=== PATIENT | female | born 1995 | race Caucasian/White ===

== ENCOUNTER 2023-02-22 15:49 | Emergency (ER) | payer MEDICAID ==
[2023-02-22 16:16] VITALS: O2SAT 99
--- NOTE | 2023-02-22 16:32 | ERPHSYRPT ---
- History of Present Illness Time Seen by Provider: 02/22/23 16:28 Source: patient Exam Limitations: no limitations Patient Subjective Stated Complaint: C/O cough for a few days. Denies fever. Triage Nursing Assessment: Patient ambulated back to ER without difficulties. No SOB. She is alert and oriented. A dry, non-productive cough is present. Lungs clear. Physician History: Patient is a 27-year-old female presents to our ED for a 3-day history of a nonproductive cough and a sore throat. No fever. No chest pain. No shortness of breath. No nausea vomiting or diaphoresis. Patient states that she recently had a positive home test. Patient has no pelvic or abdominal pain. No vaginal discharge. Patient is from [place] and does not have a primary care doctor. Patient states there are sick contacts at home. Patient otherwise feels well. She voices no other complaints or concerns at this time. Portions of this note were created with voice recognition technology. There may be grammatical, spelling, punctuation or sound alike errors Timing/Duration: day(s) (3 days) Severity: mild Modifying Factors: Improves With: nothing Associated Symptoms: denies symptoms Allergies/Adverse Reactions: Penicillins Allergy (Verified 02/22/23 16:00) Hx Tetanus, Diphtheria Vaccination/Date Given: Yes Hx Influenza Vaccination/Date Given: No Hx Pneumococcal Vaccination/Date Given: No Immunizations Up to Date: Yes Travel Risk - International Travel Have you traveled outside of the country in past 3 weeks: No - Coronavirus Screening Are you exhibiting any of the following symptoms?: Yes Symptoms: Cough: New Onset Close contact with a COVID-19 positive Pt in past 14-21 Days: No - Vaccine Status Have you recieved a Covid-19 vaccination: Yes Insurance Consultant: Unknown - Vaccination Dates Dates if Unknown: ? - Review of Systems Constitutional: No Symptoms, No Fever, No Chills Eyes: No Symptoms Ears, Nose, & Throat: No Symptoms Respiratory: No Symptoms, No Cough, No Dyspnea Cardiac: No Symptoms, No Chest Pain, No Edema, No Syncope Abdominal/Gastrointestinal: No Symptoms, No Abdominal Pain, No Nausea, No Vomiting, No Diarrhea Genitourinary Symptoms: No Symptoms, No Dysuria Musculoskeletal: No Symptoms, No Back Pain, No Neck Pain Skin: No Symptoms, No Rash Neurological: No Symptoms, No Dizziness, No Focal Weakness, No Sensory Changes Psychological: No Symptoms Endocrine: No Symptoms Hematologic/Lymphatic: No Symptoms Immunological/Allergic: No Symptoms All Other Systems: Reviewed and Negative - Past Medical History Pertinent Past Medical History: No - Past Surgical History Past Surgical History: No - Social History Smoking Status: Current every day smoker How long have you smoked: 5 years Exposure to second hand smoke: No Drug Use: none Patient Lives Alone: No - Female History Hx Last Menstrual Period: Month before last Hx Now: Yes (Home test says yes) Gestational Age: ? - Nursing Vital Signs Nursing Vital Signs: Initial Vital Signs Temperature 99.1 F 02/22/23 16:00 Pulse Rate 94 H 02/22/23 16:00 Respiratory Rate 18 02/22/23 16:00 Blood Pressure 130/68 02/22/23 16:00 O2 Sat by Pulse Oximetry 99 02/22/23 16:00 Pain Scale Pain Intensity 0 - Physical Exam General Appearance: no apparent distress, alert Eye Exam: PERRL/EOMI, eyes nml inspection Ears, Nose, Throat Exam: normal ENT inspection, TMs normal, pharynx normal, moist mucous membranes Neck Exam: normal inspection, non-tender, supple, full range of motion Respiratory Exam: normal breath sounds, lungs clear, airway intact, No respiratory distress Cardiovascular Exam: regular rate/rhythm, normal heart sounds, normal peripheral pulses Gastrointestinal/Abdomen Exam: soft, normal bowel sounds, No tenderness, No mass Back Exam: normal inspection, normal range of motion, No CVA tenderness, No vertebral tenderness Extremity Exam: normal inspection, normal range of motion, pelvis stable Neurologic Exam: alert, oriented x 3, cooperative, normal mood/affect, nml cerebellar function, nml station & gait, sensation nml, No motor deficits Skin Exam: normal color, warm, dry, No rash Lymphatic Exam: No adenopathy SpO2 Interpretation: normal SpO2: 99 O2 Delivery: Room Air - Course Nursing assessment & vital signs reviewed: Yes Ordered Tests: Active Orders 24 hr Category Date Time Status HCG QUALITATIVE, URINE Stat Lab 02/22/23 16:55 Completed UA W/RFX UR CULTURE Stat Lab 02/22/23 16:55 Completed Medication Summary Discontinued Medications Generic Name Dose Route Start Last Admin Trade Name Freq PRN Reason Stop Dose Admin Nitrofurantoin Macrocrystals 100 mg 02/22/23 18:07 Nitrofurantoin Macro 100 Mg Capsule PO 02/22/23 18:08 STAT ONE Lab/Rad Data: Laboratory Results 02/22/23 02/22/23 02/22/23 Range/Units 16:55 16:55 16:35 Urine Color Yellow (Yellow) Urine Appearance Clear (Clear) Urine pH 8.0 (4.6-8.0) Ur Specific [place] <=1.005 (1.005-1.030) Urine Protein Negative (Negative) Urine Glucose (UA) Negative (Negative) mg/dL Urine Ketones Negative (Negative) Urine Blood Negative (Negative) Urine Nitrite Negative (Negative) Urine Bilirubin Negative (Negative) Urine Urobilinogen 0.2 (0.2) mg/dL Ur Leukocyte Esterase Moderate A (Negative) U Hyaline Cast (Auto) NONE SEEN (0-2) /LPF Urine Microscopic RBC 0-2 (0-5) /HPF Urine Microscopic WBC 3-5 (0-5) /HPF Ur Epithelial Cells None Seen (None Seen) /HPF Urine Bacteria None Seen (None Seen) /HPF Urine Culture Reflexed NO (NO) Urine HCG, Qual POSITIVE (NEGATIVE) Influenza Type A Ag (NEGATIVE) Influenza Type B Ag (NEGATIVE) RSV (PCR) (NEGATIVE) SARS-CoV-2 (PCR) (NEGATIVE) Group A Strep Antibody NOT DETECTED (NEGATIVE) 02/22/23 Range/Units 16:30 Urine Color (Yellow) Urine Appearance (Clear) Urine pH (4.6-8.0) Ur Specific [place] (1.005-1.030) Urine Protein (Negative) Urine Glucose (UA) (Negative) mg/dL Urine Ketones (Negative) Urine Blood (Negative) Urine Nitrite (Negative) Urine Bilirubin (Negative) Urine Urobilinogen (0.2) mg/dL Ur Leukocyte Esterase (Negative) U Hyaline Cast (Auto) (0-2) /LPF Urine Microscopic RBC (0-5) /HPF Urine Microscopic WBC (0-5) /HPF Ur Epithelial Cells (None Seen) /HPF Urine Bacteria (None Seen) /HPF Urine Culture Reflexed (NO) Urine HCG, Qual (NEGATIVE) Influenza Type A Ag NEGATIVE (NEGATIVE) Influenza Type B Ag NEGATIVE (NEGATIVE) RSV (PCR) NEGATIVE (NEGATIVE) SARS-CoV-2 (PCR) NEGATIVE (NEGATIVE) Group A Strep Antibody (NEGATIVE) - Progress Progress: improved Progress Note: 27-year-old female presents emergency department for evaluation of nausea and generally feeling unwell. Positive test at home. Patient does not have a primary care doctor to follow-up with. Work-up reveals a urinary tract infection. COVID RSV influenza negative. Strep negative. Patient received a dose of Macrobid in our ED. Patient referred to Dr. Guy for follow-up as she does not have a primary care physician. Patient reassessed. She is resting comfortably. No nausea at this time. Patient requested a prescription for Zofran for home. Patient will follow-up as recommended. 02/22/23 18:15 Patient's presenting symptom is acute. Complexity of problem addressed is low acute uncomplicated. No critical care time. Complexity of data reviewed and analyzed is moderate. Urinalysis reviewed and analyzed. Viral panel reviewed as well. Risk of complication and or risk morbidity/mortality of patient management is moderate. Prescriptions forwarded to patient's pharmacy. Patient received prescription for Zofran and Macrobid. Patient will be discharged home. She will call Dr. Guy's office for follow-up visit tomorrow. Patient resting comfortably. No complaints at this time. Patient is ready for discharge. She voices no other complaints or concerns at this time. Portions of this note were created with voice recognition technology. There may be grammatical, spelling, punctuation or sound alike errors 02/22/23 18:16 Counseled pt/family regarding: lab results, diagnosis, need for follow-up - Departure Departure Disposition: Home Clinical Impression: UTI (urinary tract infection), , Nausea Condition: Stable Critical Care Time: No Referrals: DOCTOR,NO FAMILY [Primary Care Provider] - Follow up/PCP as directed FREYA GUY MD [ACTIVE STAFF] - Follow up/PCP as directed Instructions: Urinary Tract Infection, Adult (DC) Additional Instructions: Discharge/Care Plan ANELBEBO HORTENCIA was seen on 02/22/23 in the Emergency Room. The patient was counseled regarding Diagnosis,Lab results, Imaging studies, need for follow up and when to return to the Emergency Room. Prescriptions given: Discharge Note I have spoken with the patient and/or caregivers. I have explained the patient's condition, diagnosis and treatment plan based on the information available to me at this time. I have answered the patient's and/or caregiver's questions and a ddressed any concerns. The patient and/or caregivers have as good understanding of the patient's diagnosis, condition and treatment plan as can be expected at this point. The vital signs have been stable. The patient's condition is stable and appropriate for discharge from the emergency department. The patient will pursue further outpatient evaluation with the primary care physician or other designated or consulting physician as outlined in the discharge instructions. The patient and/or caregivers are agreeable to this plan of care and follow-up instructions have been explained in detail. The patient and/or caregivers have received these instruction. The patient/and or caregivers are aware that any significant change in condition or worsening of symptoms should prompt an immediate return to this or the closest emergency department or call 911. Prescriptions: Ondansetron ODT 4 MG [Zofran Odt 4 mg] 4 mg PO Q6H PRN PRN #10 tablet PRN Reason: Vomiting Nitrofurantoin Macro 100 mg [Macrobid 100MG Capsule] 100 mg PO BID 7 Days #14 cap
[2023-02-22 17:41] LABS: INFLUENZA A NEGATIVE (NEGATIVE); INFLUENZA B NEGATIVE (NEGATIVE); RESPIRATORY SYNCTIAL VIRUS NEGATIVE (NEGATIVE); SARS-CoV-2 Xpert Express NEGATIVE (NEGATIVE)
[2023-02-22 17:46] LABS: HCG URINE TEST POSITIVE (NEGATIVE)
[2023-02-22 18:04] LABS: ADD URINE CULTURE? NO (NO); Appearance Clear (Clear); Bacteria None Seen /HPF (None Seen); Bilirubin Negative (Negative); Blood Negative (Negative); Epithelial Cells None Seen /HPF (None Seen); Glucose, Urine Negative (Negative); Hyaline Casts NONE SEEN /LPF (0-2); Ketones Negative (Negative); Leukocyte Esterase Moderate (Negative); Nitrite Negative (Negative); Protein,Urine Dip Negative (Negative); RBC 0-2 /HPF (0-5); Specific Gravity <=1.005 (1.005-1.030); Urobilinogen 0.2 mg/dL (0.2)
[2023-02-22] MEDS ORDERED: Macrobid 100MG Capsule PO ONE (18:07)
[2023-02-22] MEDS ORDERED: Macrobid 100MG Capsule ONE (18:12)
[2023-02-22 18:22] VITALS: BP 105/63; PULSE 70
== END 2023-02-22 18:20 | disposition home or self-care (01) ==
LOC: ED 15:49
DX: O23.41 Unspecified infection of urinary tract in pregnancy, first trimester (principal); N39.0 Urinary tract infection, site not specified; R11.0 Nausea; J02.9 Acute pharyngitis, unspecified; R05.1 Acute cough; Z72.0 Tobacco use
CPT/HCPCS: 0241U; 81001; 81025; 87651; 99283; 36415; A9270-GY